=== PATIENT | male | born 1970 | race Caucasian/White ===

== ENCOUNTER 2021-12-14 19:59 | Emergency (ER) | payer SELFPAY ==
[2021-12-14 20:26] VITALS: BP 129/85; PULSE 71; RESP 14; TEMP 36.6; O2SAT 96
--- NOTE | 2021-12-14 21:06 | ED.GENADUL_ITS ---
Discharge Plan Disposition Patient Disposition: HOME Condition: Stable Discharge Details Clinical Impression: Abdominal pain, Alcohol intoxication Primary Care Provider: [facility] Provider: Jo Hayden Home Meds and New Rx's Prescriptions: No Action hydroxyzine HCl 50 mg Tablet 50 mg PO TID sertraline 150 mg Capsule 150 mg PO DAILY Discharge Instructions Instructions: Alcohol Intoxication (ED), Acute Nausea and Vomiting (ED) Additional Instructions: At this time there is no evidence for urinary tract infection no obvious evidence for systemic infection. COVID flu and RSV swabs are negative. At this time he may have allergies or cold virus. Follow up with primary care provider in 3-5 days. Return to ED sooner if any worsening pain, fever, unable to keep food and liquid down or any concerns or concerns. Increase oral fluids. Please take Tylenol or Ibuprofen with food every 4-6 hours as needed for pain and swelling. Discharge Data Discharge Date/Time-TO BE ENTERED AT DEPARTURE: 12/14/21 23:34 Medical Decision Making 51-year-old male presents to the ER obviously intoxicated by EMS with a chief complaint of allover body pain, weakness fatigue and sinus pressure for the last few days. He reports that abdominal pain got worse which prompted him to call the ambulance. He did endorse drinking 3 Sm[place] prior to arrival. He denies daily drinking. He is a daily smoker smokes marijuana. He reports vomiting which occurred earlier today and diarrhea. History somewhat limited by patient intoxication. Work-up ordered including fluids, CBC CMP urinalysis ethyl alcohol level urine drug screen. CBC shows no leukocytosis hemoglobin 13.0 macro 36.6, sodium 131 potassium 3.1 chloride 96, BUN 3 creatinine 0.6, GFR greater than 60, calcium 8.2 magnesium 1.7. Urinalysis is negative for leukocytes, nitrite no evidence for UTI. COVID flu and RSV negative. 2320: Patient up in room inadvertently pulled IV out. Sister was called he was able to calm give patient a ride home. Patient reports that his headache has somewhat improved. Patient discharged into the care of his family member who is responsible and appears not to the influence. Discussed home care strict return instructions. Encourage patient to drink Gatorade, decrease alcohol intake, and follow up with PCP. This text was generated using [employer]ation system, please disregard any oddities of phrase or misspellings. HPI General Mode of arrival: wheelchair . Date/Time Provider Initiated Documentation: 12/14/21 21:05 . Limitations to Documentation: altered mental status (Intoxicated, ) . Information obtained by: patient, RN notes reviewed and old records reviewed . HPI Narrative: 51-year-old male presents to the ER obviously intoxicated by EMS with a chief complaint of allover body pain, weakness fatigue and sinus pressure for the last few days. He reports that abdominal pain got worse which prompted him to call the ambulance. He did endorse drinking 3 [place] prior to arrival. He denies daily drinking. He is a daily smoker smokes marijuana. He reports vomiting which occurred earlier today and diarrhea. Vital signs are stable he is afebrile upon arrival. He has no focal neurodeficits however history and physical is limited by intoxication. Abdomen is soft no guarding no masses palpated. He is not vaccinated for COVID and is requesting a COVID test. Related Data Home Medications Medication Instructions Recorded Confirmed hydroxyzine HCl 50 mg tablet 50 mg PO TID 12/14/21 12/14/21 sertraline 150 mg capsule 150 mg PO DAILY 12/14/21 12/14/21 Allergies Allergy/AdvReac Type Severity Reaction Status Date / Time No Known Allergies Allergy Unverified 12/14/21 20:29 General Stated Complaint: Abd Prob SERGEY: 3 Review of Systems Constitutional Constitutional: Reports as per HPI, Reports body ache(s), Reports fatigue, Reports headache(s), Reports lethargy and Reports weakness Eyes Eyes: Denies blurry vision ENT Ears, Nose, Mouth, and Throat: Reports headache(s), Denies neck mass, Denies neck pain, Reports disequilibrium (intoxicated) and Reports sinus pressure Cardiovascular Cardiovascular: Denies chest pain and Denies dyspnea Respiratory Respiratory: Denies cough, Denies hemoptysis and Denies dyspnea Gastrointestinal Gastrointestinal: Reports abdominal pain, Reports diarrhea, Reports nausea and Reports vomiting Genitourinary Genitourinary: Reports system reviewed and no additional complaints, except as documented (Reports prostate problems), Reports dysuria and Reports urinary hesitancy Musculoskeletal Musculoskeletal: Denies neck pain Neurologic Neurologic: Reports headache(s), Reports disequilibrium (intoxicated) and Reports weakness Endocrine Endocrine: Reports fatigue PFSH All Active Problems (Updated 12/14/21 @ 23:23 by Jo Hayden NP) Abdominal pain (Acute) Alcohol intoxication (Acute) Social History Smoking/Tobacco Use Status: Current every day Smoking risk assessment performed?: Yes Alcohol Intake: current Alcohol Intake frequency: 3 or more drinks per day Alcohol type: beer and hard liquor Drug use: Daily Substance use type: marijuana Do you feel safe at home: Yes Do you feel safe in your relationship?: Yes Exam Narrative Exam Narrative: Constitutional: Alert and oriented x3. Appears stated age. Normal body habitus. He does appear heavily intoxicated. Head: Normocephalic, no trauma. Eyes: Pupils PERRL, Red reflex noted, EOM's intact. Eyelids symmetrical without lesions, discharge, . Bilateral eyelid swelling, injected conjunctive a bilaterally. No discharge no drainage. ENT: Bilateral TM's WNL, External ear normal to inspection, no mastoid TTP, swelling, or erythema, Nasal turbinates WNL, no nasal discharge. Normal dentition, Posterior pharynx WNL, no exudate. Chest: RRR, Normal S1, S2, distal pulses intact. Resp: Lungs clear to auscultation bilaterally, no wheezes, rales, or rhonchi. Abdomen: Soft, non-distended, Normoactive bowel sounds all 4 quads. Musculoskeletal: Unable to assess gait, 5/5 strength to all four extremities. Skin: No suspicious rashes or lesions. Capillary refill less than 2 sec. Neurologic: Cranial nerves II-XII intact. Alert and oriented x 3. Motor: No focal focal neuro deficits noted. Sensory: Intact bilaterally all 4 extremities. Hematologic/Lymphatic: No ecchymosis, no lymphadenopathy. Course Vital Signs Vital signs: Vital Signs Temperature 36.6 C 12/14/21 20:26 Pulse 71 12/14/21 20:26 Respiratory Rate 14 12/14/21 20:26 Blood Pressure 129/85 12/14/21 20:26 Pulse Oximetry 96 12/14/21 20:26 Temperature 36.6 C 12/14/21 20:26 Temperature Source Oral 12/14/21 20:26 Pulse 71 12/14/21 20:26 Respiratory Rate 14 12/14/21 20:26 Respiratory Effort Non-Labored 12/14/21 20:30 Blood Pressure 129/85 12/14/21 20:26 Blood Pressure Position Sitting 12/14/21 20:26 Pulse Oximetry 96 12/14/21 20:26 Oxygen Delivery Method Room Air 12/14/21 20:26 Oxygen Flow Rate 0 12/14/21 20:26 Pain Level 6 12/14/21 20:26 PAWSS Have you Been Recently Intoxicated or Drunk Within the Last 30 days?: No Have you Ever Experienced Previous Episodes of Alcohol Withdrawal?: Yes Have you ever Experienced Withdrawal Seizures?: Yes Have you ever Experienced Delirium Tremens(DT)s?: Yes Have you ever undergone Alcohol Rehabilitation Treatment (i.e, inpt ot outpatient treatment programs)?: Yes Have you ever Experienced Blackouts?: No Have you ever Combined Alcohol with other Downers within the last 90 days?: No Have you ever Combined Alcohol with any other Substance of Abuse during the last 90 days?: No Positive Blood Alcohol level on Presentation? [PCS.BAL]: No Evidence of Increased Autonomic Activity (i.e. HR>120, tremor, sweating, agitation, nausea)?: No Result: 4
[2021-12-14 21:37] LABS: Abs Immature Grans 0.02 10^3/uL (0.0-0.06); Absolute Basophil Count 0.02 10^3/uL (0.0-0.2); Absolute Eosinophil Count 0.02 10^3/uL (0.0-0.7); Absolute Lymphocyte Count 1.98 10^3/uL (1.2-3.4); Absolute Monocyte Count 0.38 10^3/uL (0.1-0.8); Absolute Neutrophil Count 4.34 10^3/uL (1.2-6.7); Basophils % 0.3; Eosinophils % 0.3; HCT 36.6 % (40.0-50.0); Immature Grans % 0.3; Lymphocytes % 29.3; MCH 28.1 pg (27.0-33.0); MCHC 35.5 % (32.0-36.0); MCV 79 fL (80-95); MPV 9.2 fL (8.0-11.0); Monocytes % 5.6; Neutrophils % 64.2; Platelet Count 225 10^3/uL (130-400); RBC 4.62 10^6/uL (4.36-5.78); RDW 12.6 % (11.8-14.1); RDW-SD 35.7 fL; WBC 6.76 10^3/uL (4.4-10.8)
[2021-12-14 22:01] LABS: ALT 34 U/L (16-63); AST 21 U/L (15-37); Albumin 3.6 g/dL (3.4-5.0); Alkaline Phosphatase 96 U/L (46-116); Anion Gap 10.3 mmol/L (3-11); BUN 3 mg/dL (7-18); Bilirubin, Total 0.5 mg/dL (0.2-1.0); CO2 24.7 mmol/L (21.0-32.0); CREATININE 0.6 mg/dL (0.70-1.30); Calcium 8.2 mg/dL (8.5-10.1); Chloride 96 mmol/L (98-107); Glucose 105 mg/dL (74-106); Magnesium 1.7 mg/dL (1.8-2.4); Potassium 3.1 mmol/L (3.5-5.1); Sodium 131 mmol/L (136-145); Total Protein 6.6 g/dL (6.4-8.2)
[2021-12-14 22:11] LABS: Bilirubin Negative (Negative); Blood Negative (Negative); Clarity Clear (Clear); Glucose Negative (Negative); Ketones Negative (Negative); Leukocyte Esterase Negative (Negative); Nitrite Negative (Negative); Specific Gravity 1.015 (1.005-1.025); Urobilinogen 0.2 EU/dL (Up TO 0.2); pH 6.5 (5-8)
[2021-12-14 22:15] LABS: COVID-19 PCR Negative (Negative); Influenza A PCR Negative (Negative); Influenza B PCR Negative (Negative); RSV PCR Negative (Negative)
[2021-12-14 22:45] LABS: *AMPHETAMINES SCREEN URINE Negative (Negative); *BARBITURATES SCREEN URINE Negative (Negative); *BENZODIAZEPINES SCREEN URINE Negative (Negative); Cannabinoids THC Positive (Negative); Cocaine Screen,Urine Negative (Negative); METHADONE URINE SCREEN Negative (Negative); OPIATES URINE SCREEN Negative (Negative)
[2021-12-14] MEDS: Ondansetron 4 MG/2 ML VIAL IVP (22:48)
[2021-12-14] MEDS: Normal Saline 1,000 ML 1000 ML IV (22:48)
[2021-12-14 22:50] LABS: Tricyclic Antidepressants Negative (Negative)
[2021-12-14 23:20] VITALS: BP 136/68; PULSE 67; RESP 16; O2SAT 97
[2021-12-14 23:44] LABS: ETHANOL BLOOD 210.4 mg/dL (<10)
== END 2021-12-14 23:34 | disposition home or self-care (01) ==
LOC: ER 23:47
PROVIDERS: Emergency Provider Registered Nurse Emergency
DX: R10.9 Unspecified abdominal pain (principal); F10.120 Alcohol abuse with intoxication, uncomplicated; Y90.7 Blood alcohol level of 200-239 mg/100 ml
CPT/HCPCS: 80053; 80307; 87637; 96361; 96374; 99283; 99284; 80320; 81003; 83735; 85025; J2405

== ENCOUNTER 2023-11-19 06:01 | Day surgery (SDC) | payer OTHER, SELFPAY ==
[2023-11-19 06:21] VITALS: BP 120/96; PULSE 74; RESP 16; TEMP 36; O2SAT 96
[2023-11-19] MEDS: Lactated Ringers 1,000 ML 80 ML IV (06:40)
--- NOTE | 2023-11-19 07:18 | W.ANESPRE ---
General Info Date of Service Date Performed: 11/12/23 Height: 6 ft 1 in Weight: 84.368 kg Body Mass Index (BMI): 24.5 Surgical Procedure: Operation Date: 11/19/23 07:35 Proposed Procedure Side Surgeon tino Garcia MD Meds Allergies and Home Medications Allergies Allergy/AdvReac Type Severity Reaction Status Date / Time No Known Allergies Allergy Verified 11/19/23 06:29 Home Medication Medication Instructions Recorded famotidine 20 mg tablet 20 mg PO BID 08/29/23 ibuprofen 200 mg tablet 600 mg PO BID PRN 08/29/23 sertraline 100 mg tablet 50 mg PO DAILY 11/01/23 buprenorphine 2 mg-naloxone 0.5 mg 1 tab sublingual DAILY 11/19/23 sublingual tablet Current Visit Medications: Current Medications Generic Name Dose Route Start Last Admin Trade Name Freq PRN Reason Stop Dose Admin Ringer's Solution 1,000 mls @ 80 mls/hr 11/19/23 06:00 11/19/23 06:40 IV 11/19/23 23:59 80 mls/hr INFUSION VARGAS Administration IV Miscellaneous Supplies 1 each 11/19/23 06:00 Iv Access IV 11/19/23 23:59 DIRECTED VARGAS Sodium Chloride 0 ml 11/19/23 06:00 Normal Saline Flush 10 Ml Syr IV 11/19/23 23:59 PRN PRN Sodium Chloride 0 ml 11/19/23 06:00 Normal Saline 10 Ml Vial IJ 11/19/23 23:59 DIRECTED PRN Sterile Water 0 ml 11/19/23 06:00 Water,Injection,Sterile 10 Ml Vial IJ 11/19/23 23:59 DIRECTED PRN [facility] Medical History Medical History Hard of hearing Adjustment disorder Surgical History Surgical History (Updated 11/19/23 @ 06:34 by Steff Del Castillo) H/O tooth extraction Tobacco Smoking/Tobacco Use Status: Former Tobacco Use Alcohol Alcohol Intake: former Substance Use Substance use: Current Sobriety Details: buprenorphine-occassionally Vital Signs and Lab Results Vital Signs Most Recent Vital Signs in EMR: Most Recent Vital Signs Temp Pulse Resp BP Pulse Ox 36.0 C L 74 16 120/96 H 96 11/19/23 06:21 11/19/23 06:21 11/19/23 06:21 11/19/23 06:21 11/19/23 06:21 Lab Results Blood Type / Crossmatch: No Data to Display Complete Blood Count: No Data to Display Complete Metabolic Panel: No Data to Display Liver Function Panel: No Data to Display Coagulation Panel: No Data to Display Cardiac Panel: No Data to Display Arterial Blood Gas: No Data to Display Venous Blood Gas: No Data to Display Pancreas Panel: No Data to Display Thyroid Panel: No Data to Display Infectious Disease: No Data to Display Blood Cultures: No Data to Display Toxicology Panel: No Data to Display Anesthesia Assessment and Plan Anesthesia History Personal History: No History of Anesthesia Complications and Unknown Anesthesia History Family History: No Family History of Anesthesia Complications and Family History Unknown Exercise Tolerance Exercise Tolerance: Metabolic Equivalents>4 Pertinent Negatives Pertinent Negatives: No Symptoms of GERD, No Major Cardiovascular Symptoms or Complaints and No Major Pulmonary Symptoms or Complaints Cardiac & Pulmonary Exam Cardiac Exam: Normal S1/S2 Heart Sounds Pulmonary Exam: Clear Bilateral Breath Sounds Implantable Cardiac Device Does patient have a Pacemaker or an ICD?: No Airway Exam Known Difficult Airway: No Mallampati Class: 1 Mouth Opening: Normal (> 3cm) Thyromental Distance: Greater than 3 cm Neck Range of Motion: Full ROM Neck Circumference: Normal Teeth Condition: Normal Dentition ASA Classification ASA Score: ASA 2 Emergency Case?: No NPO Status NPO Status: NPO Clears >2 hours, Solids >8 hours Anesthesia Plan Resuscitation Status: Full Code Anesthesia Technique: General Anesthesia Airway Planned: Natural Airway Monitors Used: Standard Monitors
[2023-11-19 07:20] VITALS: BMI 24.5
--- NOTE | 2023-11-19 08:04 | BOWEL_PTH ---
PATIENT: Ray Raya LOC: [facility] U#:[id number] AGE/SX: 53/M ROOM: RE11/19/[address]: Tulio Garcia : 1970 BED: DIS: 11/19/2023 SPEC #: [id number] RECD: 11/19/23 12:55 STATUS: GENE REQ #: [id number] HELENE: 11/19/23 08:[address]: Tulio Garcia DEPT: Surgical Specimen RECD BY: Cecilia Salazar ENTERED: 11/19/23 12:56 SP TYPE: Bowel OTHR DR: Unknown,Unknown Tissues: 1 - BIOPSY BOWEL R - BIOPSY BOWEL Procedures: GROSS AND MICRO LEVEL 4 Comments: [id number]
--- NOTE | 2023-11-19 08:19 | W.COLOREPORT ---
Date of service: 11/19/23 Time of Service: 08:19 Colonoscopy Report Procedure Description: PROCEDURES PERFORMED: 1. Colonoscopy with hot snare polypectomy 2. Cold forceps polypectomy PREOPERATIVE DIAGNOSIS: Rectal bleeding POSTOPERATIVE DIAGNOSIS: Rectal polyp SURGEON: Roque Garcia MD INDICATION for procedure: The patient is a 53-year-old man who has been having painless rectal bleeding on and off for about 5 years. He has a family history of colon cancer in a grandmother. He has never had a colonoscopy before. FINDINGS: Normal terminal ileum. Biopsies taken to rule out inflammatory bowel disease (not suspected). No diverticular disease found. In the proximal rectum a large, pedunculated, 15-18 mm polyp was removed with hot snare technique. It was removed as a single piece and the base of the polyp appeared clinically negative for polyp tissue. No internal or external hemorrhoid disease. SURVEILLANCE interval/FOLLOW-UP: 3 years. If there is any dysplasia in the polyp on pathology, a repeat flexible sigmoidoscopy in the next 3 to 6 months should be performed. SPECIMENS: yes EBL: Minimal COMPLICATIONS: None QUALITY of prep: Excellent Procedure in detail: The patient gave written consent and was in agreement with the indications, the potential risks as well as the benefits of the procedure. They were taken to the endoscopy suite and laid in the left lateral decubitus position. A timeout was performed and anesthesia was administered which was tolerated well. I started the procedure. Digital rectal and visual examination was performed and grossly within normal limits. A well-lubricated flexible colonoscope was then introduced and passed without any notable difficulty all the way to the cecum identified by the ileocecal valve and the appendiceal orifice. The terminal ileum was intubated and looked normal. The scope was then slowly withdrawn with the above-noted findings. The patient tolerated the procedure well and was taken to the PACU in hemodynamically stable condition.
--- NOTE | 2023-11-19 08:20 | W.PM.DSUDISC ---
Date of service: 11/19/23 Time of Service: 08:20 Discharge Plan Disposition Patient Disposition: Home Condition: Good Discharge Details Attending Provider: Tulio Garcia Primary Care Provider: Unknown,Unknown Home Meds and New Rx's Prescriptions: No Action famotidine 20 mg tablet 20 mg PO BID ibuprofen 200 mg tablet 600 mg PO BID PRN sertraline 100 mg tablet 50 mg PO DAILY buprenorphine-naloxone 2-0.5 mg tablet, sublingual 1 tab sublingual DAILY Patient Comments: pt.reports he takes this occasionally, not prescribed, unsure of dose and medication name. Pt. thinks it is just buprenorphine, but states it is in pill form Discharge Instructions Additional Instructions: FINDINGS: Very large, advanced polyp was removed from your rectum today. This is why you have been seeing bleeding. This is the type of polyp and size of polyp that grows into a tumor/cancer. It was completely removed today. You need to do another colonoscopy in 3 years. Stand Alone Forms: Anesthesia Discharge Inst., Glo Villanueva ([facility]) Activity:: Activity as Tolerated Diet:: As Tolerated
[2023-11-19 08:22] VITALS: BP 112/78; PULSE 63; RESP 16; TEMP 36.5; O2SAT 97
--- NOTE | 2023-11-19 08:31 | W.ANESPOSTOP ---
Postoperative Evaluation Date, Time and Location Date Performed: 11/19/23 Time Performed: 08:31 Patient Location: Day Surgery Unit Vital Signs Most Recent Imported Vital Signs: Most Recent Vital Signs Temp Pulse Resp BP Pulse Ox 36.5 C 63 16 112/78 97 11/19/23 08:22 11/19/23 08:22 11/19/23 08:22 11/19/23 08:22 11/19/23 08:22 Pain Score Most Recent Pain Score: Most Recent Pain Score Pain Level 0 11/19/23 08:22 Assessment Mental Status: Awake (Alert & Oriented to Patient Baseline) Airway and Respiratory Function: Patent airway with normal (patient baseline) respiratory exam Cardiovascular Function: Hemodynamically Stable Hydration Status: Adequately Hydrated Nausea & Vomiting: No Nausea or Vomiting Pain: Pt. Denies Any Pain Peripheral Nerve Block: Patient did not receive a nerve block
[2023-11-19 08:50] VITALS: BP 118/82; PULSE 64; RESP 16; TEMP 36.6; O2SAT 98
== END 2023-11-19 09:07 | disposition home or self-care (01) ==
PROVIDERS: Visit Provider Student in an Organized Health Care Education/Training Program
PROC: 0DJD8ZZ Inspection of Lower Intestinal Tract, Via Natural or Artificial Opening Endoscopic (ICD-10-PCS; CPT 45378; principal; 2023-11-19 07:30)
DX: Z12.11 Encounter for screening for malignant neoplasm of colon (principal); Z80.0 Family history of malignant neoplasm of digestive organs; D37.5 Neoplasm of uncertain behavior of rectum
CPT/HCPCS: 45385; 45380; 00123; 88305; J2704